=== PATIENT | male | born 1995 | race African-American/Black ===

== ENCOUNTER 2016-11-12 08:30 | Emergency (ER) | payer SELFPAY ==
[~2016-11-12] VITALS: Ht 185.4 cm; Wt 80.0 kg
[~2016-11-12 08:30] MED LIST: FEXO180 OR; ZOFR4TAB3 SL
[2016-11-12 08:32] VITALS: BP 156/90; PULSE 66; RESP 14; TEMP 97.7; O2SAT 97
[2016-11-12] MEDS ORDERED: PENI250T59 PO (09:24)
--- NOTE | 2016-11-12 09:25 | PD ---
HPI Chief Complaint: Oral / Dental Pain or Problem Time Seen by Provider: 09:24 Travel History International Travel<30 days: No Contact w/Intl Traveler<30days: No Traveled to known affect area: No History of Present Illness HPI 21-year-old male presents to the emergency department for evaluation of right upper dental pain intermittently for the past month. States that it worsened over the past 2 days. He denies any injury or trauma to his tooth. States he has been taking naproxen with improvement of pain for most of the day when the medication wears off the pain returns. He denies any fever, chills, nausea, vomiting, facial swelling, discharge or drainage. No other complaints. 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) Immunizations Current: Yes Past Surgical History Tonsillectomy: Yes (WITH ADENOIDS) Other Surgery: Yes (ADNOIDS REMOVED) Social History Alcohol Use: Yes (OCC) Tobacco Use: Yes (OCC) Substance Use: Yes (POT) Allergies-Medications (Allergen,Severity, Reaction): Coded Allergies: Advil (Verified Adverse Reaction, Mild, Nausea/Vomiting, 11/12/16) Aleve (Verified Adverse Reaction, Mild, NAUSEA, 11/12/16) Reported Meds & Prescriptions Reported Meds & Active Scripts Active Penicillin Vk (Penicillin V Potassium) 250 Mg Tab 500 Mg PO Q8H 10 Days Review of Systems Except as stated in HPI: all other systems reviewed are Neg Physical Exam Narrative GENERAL: Well-nourished and well-developed pleasant patient in no acute distress who is nontoxic appearing. SKIN: Warm and dry without any obvious rashes or lesions. HEAD: Normocephalic and atraumatic. No facial swelling. EYES: No injection, drainage, or hyphema noted. PERRLA. EOMI. ENT: No nasal drainage noted. Oropharynx is clear and the TMs are normal with good landmarks. DENTAL: Right upper posterior molar tooth #3 with dental caries and tenderness to palpation. No erythema, no swelling, no discharge or drainage, no fluctuance. NECK: Supple and the trachea is midline. No lymphadenopathy is noted throughout the cervical chains. CARDIOVASCULAR: Regular rate and rhythm. RESPIRATORY: Breath sounds are equal bilaterally with no accessory muscle use, wheezing, rhonchi, or crackles. NEUROLOGICAL: Awake, alert, and oriented. Normal speech and gait. Cranial nerves are grossly intact. Data Data Last Documented VS Vital Signs Date Time Temp Pulse Resp B/P Pulse Ox O2 Delivery O2 Flow Rate FiO2 11/12/16 08:32 97.7 66 14 156/90 97 MDM Medical Decision Making Medical Screen Exam Complete: Yes Emergency Medical Condition: Yes Differential Diagnosis Dental caries versus dental infection versus gingivitis Narrative Course 21-year-old male presents to the emergency department for evaluation of right upper dental pain. Patient is afebrile, vital signs are stable. He does have dental caries to the right upper posterior molar. We'll place the patient on prophylactic antibiotics and he is instructed to follow-up with a dentist. Diagnosis Primary Impression: Dental caries Referrals: Dentist Patient Instructions: Dental Caries (ED), General Instructions Additional Instructions: Take medications as prescribed with food and a full glass of water. Follow-up with a dentist. Return to the ED for any acute worsening of symptoms. Med/Other Pt SpecificInfo: Prescription(s) given Scripts Penicillin V Potassium (Penicillin Vk)250 Mg Qzd157 Mg PO Q8H 10 Days Ref 0 Prov:Michael Gunter MD 11/12/16 Disposition: 01 DISCHARGE HOME Condition: Stable Lenora Blunt Nov 12, 2016 09:25
== END 2016-11-12 09:39 | disposition home or self-care (01) ==
LOC: NEPB 08:30
DX: K02.9 Dental caries, unspecified (principal); Z72.0 Tobacco use
CPT/HCPCS: 99282

== ENCOUNTER 2017-11-24 16:30 | Emergency (ER) | payer SELFPAY ==
[~2017-11-24] VITALS: Ht 188 cm; Wt 75.0 kg
[~2017-11-24 16:30] MED LIST changes: -FEXO180 OR; +PENI250T59 PO; -ZOFR4TAB3 SL
[2017-11-24 16:31] VITALS: BP 146/86; PULSE 77; RESP 16; TEMP 98.3; O2SAT 99
--- NOTE | 2017-11-24 16:56 | PD ---
HPI Chief Complaint: Injury Time Seen by Provider: 16:52 Travel History International Travel<30 days: No Contact w/Intl Traveler<30days: No Traveled to known affect area: No History of Present Illness HPI 22-year-old male presents for evaluation of right ankle pain. He Reports that yesterday he was playing basketball. He reports that he jumped up and then landed on another opponents foot, twisting his right ankle in an inversion mechanism. Since then he has had pain and swelling around the right ankle which is throbbing, constant, worse with ambulation. He denies any other injuries and he has no other complaints at this time. 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) Immunizations Current: Yes Past Surgical History Tonsillectomy: Yes (WITH ADENOIDS) Other Surgery: Yes (ADNOIDS REMOVED) Social History Alcohol Use: Yes (OCC) Tobacco Use: Yes (OCC) Substance Use: Yes (POT) Allergies-Medications (Allergen,Severity, Reaction): Coded Allergies: ibuprofen (Unverified Adverse Reaction, Mild, Nausea/Vomiting, 05/26/17) naproxen (Unverified Adverse Reaction, Mild, NAUSEA, 05/26/17) Reported Meds & Prescriptions Reported Meds & Active Scripts Active Review of Systems Musculoskeletal: Positive: Limited ROM, Edema, Pain Skin: Positive Other (denies open wounds) Physical Exam Narrative GENERAL: Well-nourished male in no acute distress SKIN: Warm and dry. CARDIOVASCULAR: Regular rate and rhythm. No murmur appreciated. RESPIRATORY: No accessory muscle use. Clear to auscultation. Breath sounds equal bilaterally. Extremities: Soft tissue swelling around the medial and lateral malleolus of the right ankle with associated tenderness to palpation. There is pain with dorsi and plantar flexion of the right ankle which is limited. The Achilles tendon is intact and nontender. 2 posterior cells pedis pulse. Data Data Last Documented VS Vital Signs Date Time Temp Pulse Resp B/P (MAP) Pulse Ox O2 Delivery O2 Flow Rate FiO2 11/24/17 16:31 98.3 77 16 146/86 (106) 99 Room Air Orders Orders Ankle, Complete ([id number]) (11/24/17 ) Crutches (11/24/17 17:53) Splint Or Brace Apply/Monitor (11/24/17 17:53) Ed Discharge Order (11/24/17 17:55) Mandatory Outpatient Referral (11/24/17 17:55) [facility] Medical Decision Making Medical Screen Exam Complete: Yes Emergency Medical Condition: Yes Medical Record Reviewed: Yes Differential Diagnosis Ankle sprain, avulsion fracture, fibular fracture, Lisfranc injury Narrative Course Ice pack provided. X-ray imaging of the right ankle be obtained. CONCLUSION: 1. Soft tissue swelling, most prominent over the lateral malleolus. 2. Suspect a small avulsion fracture off the inferior tip of the medial malleolus. 3. Small calcaneal spur at the plantar aponeurosis. The patient will be placed in a green splint, provided crutches, mandatory outpatient referral for orthopedic follow-up has been placed. The patient is stable for discharge. Diagnosis Primary Impression: Fracture of medial malleolus, right, closed Additional Impression: Right ankle sprain Referrals: Orthopedist Additional Instructions: Follow-up with an orthopedist in the next 1-2 weeks, our window caser will be calling to help facilitate an appointment. Do not remove the splint. Crutches. Ice pack several times a day 20 minutes at a time. Elevate. Tylenol or Motrin for pain. Return for any emergent medical conditions. Med/Other Pt SpecificInfo: Orthopedic Instructions Disposition: 01 DISCHARGE HOME Condition: Stable Ignacio Cordoba Nov 24, 2017 16:56
--- NOTE | 2017-11-24 17:44 | RADRPT ---
EXAM DATE/TIME: 11/24/2017 17:22 [place] COMPARISON: No previous studies available for comparison. INDICATIONS : Right ankle pain after falling while playing basketball yesterday. MEDICAL HISTORY : None. SURGICAL HISTORY : None. ENCOUNTER: Initial ACUITY: 2 days PAIN SCORE: 10/10 LOCATION: Right medial ankle. FINDINGS: Three view exam was performed of the right ankle. There is soft tissue swelling most prominent over t he lateral malleolus. However, I do believe there is a small avulsion fracture off the inferior tip of the medial malleolus. Ankle mortise is preserved. No large bone fracture. Small calcaneal spur at the plantar aponeurosis. CONCLUSION: 1. Soft tissue swelling, most prominent over the lateral malleolus. 2. Suspect a small avulsion fracture off the inferior tip of the medial malleolus. 3. Small calcaneal spur at the plantar aponeurosis. Eliud Correa MD on November 24, 2017 at 17:37 Board Certified Radiologist. This report was verified electronically.
== END 2017-11-24 18:38 | disposition home or self-care (01) ==
LOC: NEPK 16:30
DX: S82.51XA Displaced fracture of medial malleolus of right tibia, initial encounter for closed fracture (principal); S93.401A Sprain of unspecified ligament of right ankle, initial encounter; J45.909 Unspecified asthma, uncomplicated; Y93.67 Activity, basketball; Z72.0 Tobacco use; Z88.6 Allergy status to analgesic agent
CPT/HCPCS: 29515; 73610; 99283; E0113